=== PATIENT | female | born 1995 | race Two or more races ===

== ENCOUNTER 2025-05-09 22:02 | Emergency (ER) | payer MEDICAID ==
[~2025-05-09] VITALS: Ht 157.5 cm; Wt 112.8 kg
[2025-05-09 22:05] VITALS: BP 127/66; PULSE 77; RESP 18; TEMP 98.3; O2SAT 98
[2025-05-10] MEDS ORDERED: AUG875T PO (00:44)
--- NOTE | 2025-05-10 00:46 | ED.PDOC ---
Eye-HPI HPI Comments 30-YEAR-OLD FEMALE PRESENTS TO THE ED CHIEF COMPLAINT THROAT PAIN. PATIENT STATES STARTED ABOUT THREE DAYS AGO SORE THROAT AND A FEELING OF HER THROAT SWELLING. COUGH, DIFFICULTY BREATHING, SHORTNESS OF BREATH, CHEST PAIN, NAUSEA VOMITING OR DIARRHEA Chief Complaint: Sore Throat Time Seen by MD: 22:13 Primary Care Provider: NONE Reviewed Notes: Nurses Notes, Medications, Allergies Allergies: Coded Allergies: NO KNOWN ALLERGIES (Unverified , 05/11/16) Information Source: Patient Mode of Arrival: Ambulatory Past Medical History PAST MEDICAL HISTORY: Denies Surgical History: Denies all surgeries BILL CHECKER History: No Pertinent BILL CHECKER History Family History Family History: Unobtainable Social History Smoker: Non-Smoker Alcohol: Denies ETOH Use Drugs: Denies Drug Use Lives In: Home All Other Systems: Reviewed and Negative (SEE HPIO) Physical Exam General Appearance: No Apparent Distress, Normal HEENT: Pharyngeal Erythema, TMs Normal Neck: Full Range of Motion, Non-Tender Respiratory: Lungs Clear, No Respiratory Distress, Normal Breath Sounds Cardiovascular: No Edema, No JVD, No Murmur, No Gallop, Normal Peripheral Pulses, Regular Rate/Rhythm Breast Exam: Deferred Gastrointestinal: No Organomegaly, Non Tender, No Pulsatile Mass, Normal Bowel Sounds, Soft Genitalia: Deferred Pelvic: Deferred Rectal: Deferred Extremities: Normal inspection, Non-tender Musculoskeletal : Apperance: Normal Neurologic: Alert, No Motor Deficits, Normal Affect, Normal Mood, No Sensory Deficits Cerebellar Function: Normal Reflexes: NOT DONE Skin: Dry, Normal Color, Warm Lymphatic: No Adenopathy Was a procedure done? Was a procedure done?: No EENT DIFF Eye: N/A Ear: Otitis Media, Perforation, Dental, Pharyngitis X-Ray, Labs, Meds, VS Vital Signs Date Time Temp Pulse Resp B/P (MAP) Pulse Ox O2 Delivery O2 Flow Rate FiO2 05/09/25 22:05 98.3 77 18 127/66 98 98.3 X-Ray, Labs, Meds, VS Comment Likely infected. Script trial of antibiotics Advised to take medication as prescribed side effects discussed. Advised to rest increase p.o. fluids with electrolytes. Tylenol or ibuprofen as needed for the pain per labeled instructions. Follow up with your PCP in three days if no improvement. ER return precautions given patient indicates understanding and agrees with discharge plan of care. Time of 1ST Reevaluation: 22:13 Reevaluation 1ST: Unchanged Time of 2ND Reevaluation: 00:45 Reevaluation 2ND: Improved Patient Education/Counseling: Diagnosis, Treatment, Need For Follow Up Family Education/Counseling: No Family Present SEPSIS Sepsis Screen Date sepsis recognized/suspect: May 09, 2025 Time Sepsis recognized/suspect: 2209 Recent Procedure: No On Antibiotic Therapy: No Respiratory Rate >20: No Heart Rate >90: No Temp<36 C (96.8 F) or >38.3 C: No SBP <90 or MAP <65 mmHG: No New Acute Mental Status Change: No Is the patient on CPAP, BIPAP,: No Physician Orders Dexamethasone Injection (Decadron Inject (05/10/25 00:45) Amoxicillin/Clavulanate Tablet (Augmenti (05/10/25 00:45) Vital Signs Date Time Temp Pulse Resp B/P (MAP) Pulse Ox O2 Delivery O2 Flow Rate FiO2 05/09/25 22:05 98.3 77 18 127/66 98 98.3 Departure 1 Departure Time of Disposition: 00:45 Impression: Primary Impression: Acute pharyngitis Qualified Codes: J02.9 - Acute pharyngitis, unspecified Disposition: 01 HOME / SELF CARE / HOMELESS Condition: Stable e-Prescriptions Amoxicillin & Pot Clavulanate (AUGMENTIN TABLET) 875 Mg Tb 875 MG PO BID for 7 Days, #14 TAB Prov: MOSES ESTEVEZ 05/10/25 Discharged With: Self Critical Care Note Critical Care Time?: No Stability Stability form required: MOSES Sexton May 10, 2025 00:45
[2025-05-10] MEDS: AMOXICILLIN/CLAVUL 875 MG TAB PO ONE (00:51)
== END 2025-05-10 01:00 | disposition home or self-care (01) ==
LOC: ER 22:02
DX: J02.9 Acute pharyngitis, unspecified (principal)
CPT/HCPCS: 96372; 99283; J1100